=== PATIENT | female | born 1955 | race Caucasian/White ===

== ENCOUNTER 2019-08-03 09:41 | Inpatient (IN) | payer OTHER ==
[2019-08-03] MEDS ORDERED: traMADol HCL 50 MG TABLET PO ONE (10:26)
--- NOTE | 2019-08-03 10:26 | PDOC ---
History of Present Illness - General Chief Complaint: Muscle Cramping Stated Complaint: PELVIC PAIN Time Seen by Provider: 08/03/19 09:58 - History of Present Illness Initial Comments: 08/03/19 10:26 Pt is a 53 y/o F with a PMH of Lumbar disc herniation who presents to our emergency Department due to pain in her left hip and lower back. Pt endorses that she has been experiencing left lower extremity pain and weakness since this past January. 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 PMH: osteoporosis, vertebral fracture (~2 years ago) PCP: Dr. Mendoza ([place]) Pain management: Dr. Zepeda ([place]) Past History - Past Medical History Allergies/Adverse Reactions: Allergies Allergy/AdvReac Type Severity Reaction Status Date / Time No Known Allergies Allergy Verified 08/03/19 09:49 Home Medications: Ambulatory Orders Levothyroxine [Synthroid -] 100 mcg PO DAILY 10/29/13 Ascorbic Acid [Vitamin C] 500 mg PO DAILY 08/03/19 COPD: No Thyroid Disease: Yes (hypothyroid) - Psycho Social/Smoking Cessation Hx Smoking History: Never smoked Have you smoked in the past 12 months: No Number of Cigarettes Smoked Daily: 0 Hx Alcohol Use: No Substance Use Type: None Review of Systems - Review of Systems Able to Perform ROS?: Yes Is the patient limited Icelandic proficient: No Constitutional: No: Chills, Fever Respiratory: No: Cough, Shortness of Breath Cardiac (ROS): No: Chest Pain ABD/GI: No: Abdominal Distended, Constipated, Diarrhea Musculoskeletal: Yes: Muscle Weakness Neurological: Yes: Paresthesia, Weakness, Unsteady Gait *Physical Exam - Vital Signs Last Vital Signs Temp Pulse Resp BP Pulse Ox 97.5 F L 58 L 18 123/76 99 08/03/19 09:49 08/03/19 09:49 08/03/19 09:49 08/03/19 09:49 08/03/19 09:49 - Physical Exam General Appearance: Yes: Nourished, Appropriately Dressed HEENT: positive: EOMI, Normal ENT Inspection Neck: positive: Supple Respiratory/Chest: positive: Lungs Clear, Normal Breath Sounds Cardiovascular: positive: Regular Rhythm, S1, S2 Gastrointestinal/Abdominal: negative: Distended, Guarding, Rebound 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 +3/5 dorsiflexion left big toe 2+ Patellofemoral reflexes b/ l. ) ED Treatment Course - LABORATORY CBC & Chemistry Diagram: 08/05/19 07:17 08/05/19 07:17 - RADIOLOGY Radiology Studies Ordered: Category Date Time Status HIP & PELVIS-LEFT [RAD] Stat Radiology 08/03/19 10:23 Ordered SPINE-LUMBAR SACRAL [RAD] Stat Radiology 08/03/19 10:25 Ordered Medical Decision Making - Medical Decision Making 08/03/19 12:04 CBC w/ Diff, CMP, PT/INR, Type and screen sent Plain xray left hip and L spine--> Fracture Pt given Ultram for pain MRI of lumbar spine 03/29/19 - mild central loss of height of T11 appears chronic - small annular bulge at L2-L3 causes mild narrowing of the foramen - annular bulge at the L3-L4 causes slight posterior displcement of the left L3 ventral nerve root an mild narrowing of the foramen - annular bulge at the L4-L5 level has mild mass effect on the right ventral nerve root. Moderate left foraminal stenosis - annular bulge at the L5-S1 abuts the ventral nerve roots without mass effect. There is mild narrowing of the left foramen with contact on the exiting nerve root. - simple cyst in the right ovary up to 5.4cm it is similar to 2017 MRI of the left hip 02/22/19 - mild bone marrow edema within the L5 vertebral body - mild arthritic changes of the left hip joint. Hip effusion - a small amount of marrow edema is seen in the femoral neck without evidence for fracture - grade 1 strain of the gluteus medius muscle - large cyst in the right adnexal region has decreased in volume when compared to 2017 08/03/19 12:44 XRAY Hip and Pelvis: Single AP of the pelvis. 2 views of the left hip. Demineralized osseous structures. Symmetrical articulation of the hip joints. Symmetrical SI joints. Normal symphysis pubis. Bilateral hip degenerative changes. Minimal foreshortening of the left femoral neck with sclerotic changes in the superior aspect of the neck, subcapital region concerning for impacted fracture. Evaluated by Meena Ku and Ta Garcia. Pt admitted for further workup including ct/ mri. Discharge - Discharge Information Problems reviewed: Yes Clinical Impression/Diagnosis: Left groin pain - Follow up/Referral - Patient Discharge Instructions - Post Discharge Activity
[2019-08-03] MEDS ORDERED: traMADol HCL 50 MG TABLET ONE (10:28)
[2019-08-03] MEDS ORDERED: DEXAMETHASONE SOD PHOSPHATE 10 MG/1 ML VIAL IVPUSH ONE (10:39)
[2019-08-03] MEDS ORDERED: DEXAMETHASONE SOD PHOSPHATE 10 MG/1 ML VIAL ONE (11:04)
--- NOTE | 2019-08-03 11:06 | PN ---
Progress Note (short form) - Note Progress Note: NEUROSURGERY CONSULT DICTATED Pt examined History obtained at bedside 6 months h/o LBP, left hi/groin and buttock pain. L foot numbness and weakness. No B/B dysfunction. Not able to bend or walk or stand well. EPSI x3 helped back pain but not groin/hip/buttock pain Told she has "4 herniated discs" by her pain management doc Dr Zepeda PE: General- unremarkable CN- intact; Motor- 5/5 except L IP/Ev 4-, L Quad/EHL/TA/gastroc 4/5; Sensation- decreased LT/vibration L L4 and L5; DTR- decreased B ankle reflexes; + SLR on L at 40 degrees, + L Alon's maneuver LS x-rays (prelim)- L5-S1 DDD/spondylosis; grade I L4-5 spondylolisthesis Obtain prior MRI report Given worsening/persistent pain, would recommend new MRI LS spine to r/o L L4, L5, and S1 root compression Further recommendations depending on imaging findings
--- NOTE | 2019-08-03 11:11 | PDOC ---
Documentation entered by Aviva Mccullough SCRIBE, acting as scribe for Radha Lanier DO. Radha Lanier DO: This documentation has been prepared by the Jamel urbano Sammi, SCRIBE, under my direction and personally reviewed by me in its entirety. I confirm that the documentation accurately reflects all work, treatment, procedures, and medical decision making performed by me. Attending Attestation - Resident Resident Name: Sammy Suarez - ED Attending Attestation I have performed the following: I have examined & evaluated the patient, The case was reviewed & discussed with the resident, I agree w/resident's findings & plan, Exceptions are as noted - HPI HPI: 08/03/19 11:00 The patient is a 64 year old female who presents to the emergency department for evaluation of left groin pain since January. She states around the time of onset of pain she was participating in workout classes. She notes she has had xrays of the left hip and an MRI of the lumbar spine which demonstrated bulging discs and pinched nerves. The patient reports her left hip pain affects her activities of daily living. PMH: osteoporosis, vertebral fracture (~2 years ago) PCP: Dr. Mendoza ([facility]) Pain management: Dr. Lagos ([facility]) - Physicial Exam PE: 08/03/19 11:01 GENERAL: Awake, alert, and fully oriented, in no acute distress NECK: Normal ROM, supple, no lymphadenopathy, JVD, or masses LUNGS: Breath sounds equal, clear to auscultation bilaterally. No wheezes, and no crackles HEART: Regular rate and rhythm, normal S1 and S2, no murmurs, rubs or gallops ABDOMEN: Soft, nontender, normoactive bowel sounds. No guarding, no rebound. No masses BACK: +midline L spine tenderness (L2-down). +Left low back paraspinal tenderness EXTREMITIES: +Left hip ttp +pain with external rotation and flexion of the left hip (less with internal rotation) +3/5 dorsiflexion left big toe +4/5 dorsiflexion of foot +4/5 flexion of hip with pain. 5/5 left foot plantarflexion. NEUROLOGICAL: Cranial nerves II through XII grossly intact. Normal speech. SKIN: Warm, Dry, normal turgor, no rashes or lesions noted. - Medical Decision Making 08/03/19 11:05 I, Dr. Radha Lanier, DO, attest that this document has been prepared under my direction and personally reviewed by me in its entirety. I further attest, that it accurately reflects all work, treatment, procedures and medical decision -making performed by me. a/p: 64yo female with hx of osteoporosis with lbp and L hip/groin pain -pt states pain started 6m ago after lifting in a work out class -doesn't remember acute onset of pain, but started to feel pain after the class -pt states increasing weakness to LLE and L groin pain since -had MRI that showed 4 herniated discs in lumbar spine - pt states 3 epidural injections since january without relief -L lbp, midline lbp -weakness in dorsiflexion of the foot and toe -pt with sensation intact -pt also with pain with internal an external rotation of the L hip -pain with flexion of the hip -will send for xray low back and hip/pelvis -family requests Dr. Alcantara for neurosx for neuro deficits -case discussed with Dr. Alcantara - recommends MRI lumbar spine -will give ultram -will send labs -will monitor and reassess 08/03/19 11:11 dr. alcantara at the bedside to see the patient 08/03/19 11:48 MRI of lumbar spine 03/29/19 - mild central loss of height of T11 appears chronic - small annular bulge at L2-L3 causes mild narrowing of the foramen - annular bulge at the L3-L4 causes slight posterior displcement of the left L3 ventral nerve root an mild narrowing of the foramen - annular bulge at the L4-L5 level has mild mass effect on the right ventral nerve root. Moderate left foraminal stenosis - annular bulge at the L5-S1 abuts the ventral nerve roots without mass effect. There is mild narrowing of the left foramen with contact on the exiting nerve root. - simple cyst in the right ovary up to 5.4cm it is similar to 2017 MRI of the left hip 02/22/19 - mild bone marrow edema within the L5 vertebral body - mild arthritic changes of the left hip joint. Hip effusion - a small amount of marrow edema is seen in the femoral neck without evidence for fracture - grade 1 strain of the gluteus medius muscle - large cyst in the right adnexal region has decreased in volume when compared to 2017 08/03/19 12:11 impacted fem neck fx on xray compression fx in lumbar spine ct/mri ordered case discussed with Dr. Ku who will see the patient in consult (Dr. Ku per fam request) 08/03/19 12:11 Dr. Ku at the bedside 08/03/19 12:[address] Nicolas for admission 08/03/19 12:[address] Layne - accepts pt to service Heart Score/ECG Review - ECG Intrepretation Comment:: 08/03/19 12:22 sinus at 68, nl axis, nl interval, no acute st/t wave findings
[2019-08-03 11:25] LABS: BASO % 0.8 % (0-2.0); EOS % 2.5 % (0-4.5); HEMATOCRIT 39.8 % (32.4-45.2); HEMOGLOBIN 13.2 GM/dL (10.7-15.3); LYMPH % 24.6 % (8-40); MCH 31.4 pg (25.7-33.7); MCHC 33.2 g/dl (32.0-36.0); MEAN CELL VOLUME 94.6 fl (80-96); MEAN PLT VOLUME 8.3 fl (7.5-11.1); MONO % 6.7 % (3.8-10.2); NEUT % 65.4 % (42.8-82.8); PLATELET COUNT 187 K/MM3 (134-434); RBC 4.21 M/mm3 (3.60-5.2); RDW 13.1 % (11.6-15.6); WHITE BLOOD COUNT 5.5 K/mm3 (4.0-10.0)
[2019-08-03 11:32] LABS: BILIRUBIN,TOTAL 0.4 mg/dL (0.2-1); BLOOD UREA NITROGEN 21.7 mg/dL (7-18); CALCIUM 9.2 mg/dL (8.5-10.1); CREATININE 0.7 mg/dL (0.55-1.3); INR 0.96 (0.83-1.09); POTASSIUM 4.1 mmol/L (3.5-5.1); PROTHROMBIN TIME (PATIENT) 11.3 SEC (9.7-13.0); TOT PROT 7.4 g/dl (6.4-8.2)
--- NOTE | 2019-08-03 12:16 | CONS ---
DATE OF CONSULTATION: 08/03/2019 CHIEF COMPLAINT: Left groin, back, and buttock pain with left lower extremity weakness and numbness of 6 months duration. HISTORY OF PRESENT ILLNESS: Patient is a 64-year-old right-handed female with a history of lower back pain 6 months ago after an exercise program who subsequently complains of increasing left-sided groin and buttock pain. There is also associated weakness and numbness of the left lower extremity. She has done some exercises , but the pain persists. She has no right-sided symptoms. She has no bowel or bladder incontinence. Her pain is worse with standing and walking and any activities including bending. She was given Motrin, but that does not help her pain much. She also underwent 3 epidural steroid injections under the care of her pain management physician, which helps her back pain but not her groin or buttock pain. She denies any other recent trauma or falls. PAST MEDICAL HISTORY: Significant for hypothyroidism and osteoporosis. MEDICATIONS: Lipitor and Motrin. ALLERGIES: There are no known drug allergies. FAMILY HISTORY: Noncontributory. SOCIAL HISTORY: She does not smoke and only drinks alcohol socially. She lives at home with her . REVIEW OF SYSTEMS: Otherwise negative for major constitutional, head, neck, cardiovascular, pulmonary, gastrointestinal, genitourinary, endocrinological, neurological, or psychological problems except for the above. PHYSICAL EXAMINATION: Vital Signs: Temperature is 97.5, blood pressure is 123/76 with a pulse rate of 58. HEENT: Shows her to be normocephalic, atraumatic, anicteric. Neck: Supple with no nuchal rigidity. Coronary: Demonstrates regular rhythm without a murmur. Lungs: Clear to auscultation bilaterally. Abdomen: Benign. Extremities: There are no signs of DVT. Neurologic: She is awake, alert, and oriented x4. Her speech is normal. Cranial nerve examination is intact 2-12. Motor examination shows 5/5 strength except left iliopsoas and foot eversion, which are 4-. Left quadriceps, extensor hallucis longus, tibialis anterior, and gastrocnemius are 4/5. There is decreased sensation to light touch and vibratory sensation of the left L4 and L5 distribution. Deep tendon reflexes are 2 to 3+ bilaterally except diminished bilateral ankle reflexes. She has a positive straight leg raise on the left side of 40 degrees. She has a positive left-sided Alon's maneuver. IMPRESSION: 1. Left-sided back pain and left lower extremity weakness with numbness consistent with clinical left L4, L5, and S1 radiculopathy. 2. Osteoporosis by report. 3. Hypothyroidism. RECOMMENDATIONS: Patient presents with a [id number] of increasing left- sided back pain and pain radiating down to her left buttock and left groin. This is consistent with left S1 radiculopathy in addition to potential hip pathology. She also has weakness of the left with dorsiflexion especially foot eversion, which is predominantly L4. There is extensor hallucis longus and gastrocnemius weakness, which are L5 and S1 respectively. There is corresponding numbness in the L4 and L5 distribution. An MRI of the lumbar spine is recommended to visualize from T12 to S1 to rule out any compressive pathology on the left side. Occasionally, thoracolumbar junction pathology can cause distal left lower extremity symptoms. The patient could potentially benefit from a course of gabapentin for her radiculopathy. She may also, as I stated earlier, have concurrent hip pathology, and radiograph evaluation is underway to assess her hips as well. An MRI report from previous imaging will be helping; however, repeat MRI imaging at this time is warranted because of her persistent symptoms with associated neurological deficit. The above was discussed with patient and the at the bedside. All questions were answered. AURORA DIAMOND M.D. [id number] MTDD
--- NOTE | 2019-08-03 12:21 | CONSULT ---
Consult - text type - Consultation Consultation Note: ORTHOPEDIC SURGERY CONSULTATION NOTE Department of Orthopedic Surgery HISTORY OF PRESENT ILLNESS Ms Gu is a 64 year old female who presents to [facility] ER with several months of worsening left groin pain. She has been worked up for lumbar spine pathology in the past, and had an MRI of the left hip several months ago which showed mild edema in the left femoral neck. The orthopedic service was consulted for a possible left hip impacted femoral neck fracture. The pain began insidiously after a exercises workout approximately 6 months ago. The patient notes pain in her left groin, Denies any other injuries. Denies numbness, tingling or other constitutional complaints. Denies tobacco use, drug use, alcohol abuse. The patient lives with family and uses no assistive devices at baseline. FAMILY HISTORY non-contributory REVIEW OF SYMPTOMS A twelve-point review of systems was performed and was negative except as noted in HPI. PHYSICAL EXAM Constitutional: Alert and oriented to person, place, and time. Appears well- developed and well-nourished. No acute distress, appropriate mood and affect. Right Upper Extremity: Skin warm, dry, and intact; no lesions, rashes or ulcers noted. Muscle mass equal and symmetric to contralateral side. No atrophy noted. No masses or effusions noted. No tenderness to palpation all joints; nontender throughout rest of extremity. Full passive and active ROM, free from pain. Joints stable with no pathologic laxity. M/R/U/MSK/AX motor intact; SILT distally; 2+ radial pulses; Cap refill brisk. Tone and reflexes normal. Left Upper Extremity: Skin warm, dry, and intact; no lesions, rashes or ulcers noted. Muscle mass equal and symmetric to contralateral side. No atrophy noted. No masses or effusions noted. No tenderness to palpation all joints; nontender throughout rest of extremity. Full passive and active ROM, free from pain. Joints stable with no pathologic laxity. M/R/U/MSK/AX motor intact; SILT distally; 2+ radial pulses; Cap refill brisk. Tone and reflexes normal. Right Lower Extremity: Skin warm, dry, and intact; no lesions, rashes or ulcers noted. Muscle mass equal and symmetric to contralateral side. No atrophy noted. No masses or effusions noted. No tenderness to palpation all joints; nontender throughout rest of extremity. No cords or calf tenderness No significant calf/ankle edema. Full passive and active ROM, free from pain. Joints stable with no pathologic laxity. EHL/TA/GS motor intact; SILT distally; 2+ DP pulses; Cap refill brisk. Tone and reflexes normal. Able to SLR; Negative log roll test. Left Lower Extremity: Skin warm, dry, and intact; no lesions, rashes or ulcers noted. Muscle mass equal and symmetric to contralateral side. No atrophy noted. No masses or effusions noted. Tender to palpation at left greater trochanter/ groin area. nontender throughout rest of extremity. No cords or calf tenderness No significant calf/ankle edema. Full passive ROM of the knee and ankle, free from pain. Joints stable with no pathologic laxity. EHL motor 4/5; TA motor 4/5 ; GC motor 5/5. SILT distally; 2+ DP pulses; Cap refill brisk. Tone and reflexes normal. Able to SLR with difficulty and pain in groin; Negative log roll, unable to ER hip. Social History Smoking history Never smoked Aproximately how many 0 cigarettes per day Hx Alcohol Use No Allergies Allergy/AdvReac Type Severity Reaction Status Date / Time No Known Allergies Allergy Verified 08/03/19 09:49 Vital Signs (last) Temp Pulse Resp BP Pulse Ox 97.5 F L 58 L 18 123/76 99 08/03/19 09:49 08/03/19 09:49 08/03/19 09:49 08/03/19 09:49 08/03/19 09:49 Intake and Output 08/01/19 08/02/19 08/03/19 23:59 23:59 23:59 Other: Weight 145 lb Height 4 ft 11 in Body Mass Index (BMI) 29.2 Weight Measurement Method Est/Stated by Patient Laboratory 08/03/19 11:00 08/03/19 11:00 PT with INR 11.30 SEC (9.7-13.0) 08/03/19 11:00 IMAGING I personally reviewed all radiographs, CT, and other imaging. They demonstrate a possible Left Femoral Neck fracture ASSESSMENT AND PLAN Ms. Gu is a 64 year old female presenting with a possible left sided non- displaced femoral neck fracture. We have reviewed the imaging and clinical findings in detail, as well as their potential implications. We will obtain a CT scan to confirm the left femoral neck fracture. If confirmed, this is an operative fracture. Admit - Follow up CT left hip - If CT negative for fracture, need to obtain MRI of the left hip. NPO past midnight except for medications - DVT PPX today, hold antiocoagulation medications past midnight NWB LLE CBC/BMP/Coags Type and Screen/2 units PRBC on hold IVF as per medical team when NPO EKG CXR UA All questions were answered. Thank you for involving our team in the care of this patient. Please call us at [phone] with questions
[2019-08-03] MEDS ORDERED: ONDANSETRON *ODT* 4 MG TABLET ONE (13:46)
--- NOTE | 2019-08-03 14:08 | HP ---
Admitting History and Physical - Admission Chief Complaint: came in for left groin pain History of Present Illness: The patient is a 64 year old female who presents to the emergency department for evaluation of left groin pain since January. She states around the time of onset of pain she was participating in workout classes 6 months ago. She notes she has had xrays of the left hip and an MRI of the lumbar spine which demonstrated bulging discs and pinched nerves. The patient reports her left hip pain affects her activities of daily living. she is not able to dress herself and cannot abduct the thigh bc of the pain she has seen pain specialist had MRI for back pain and got 3 facet injections in the back,but it didnot relieve the pain History Source: Patient - Past Medical History Rheumatology: Yes: Other (osteoporosis) Endocrine: Yes: Hypothyroidism - Smoking History Smoking history: Never smoked Have you smoked in the past 12 months: No Aproximately how many cigarettes per day: 0 - Alcohol/Substance Use Hx Alcohol Use: No Home Medications - Allergies Allergies/Adverse Reactions: Allergies Allergy/AdvReac Type Severity Reaction Status Date / Time No Known Allergies Allergy Verified 08/03/19 09:49 - Home Medications Home Medications: Ambulatory Orders Levothyroxine [Synthroid -] 100 mcg PO DAILY 10/29/13 Ascorbic Acid [Vitamin C] 500 mg PO DAILY 08/03/19 Review of Systems - Review of Systems Musculoskeletal: reports: Other (left groin pain) Physical Examination Vital Signs: Vital Signs Temperature 97.5 F L 08/03/19 09:49 Pulse Rate 58 L 08/03/19 09:49 Respiratory Rate 18 08/03/19 09:49 Blood Pressure 123/76 08/03/19 09:49 O2 Sat by Pulse Oximetry (%) 99 08/03/19 09:49 Constitutional: Yes: Calm Cardiovascular: Yes: Regular Rate and Rhythm, S1 Respiratory: Yes: CTA Bilaterally Gastrointestinal: Yes: Normal Bowel Sounds, Soft Extremities: Yes: Other Edema: No Neurological: Yes: Alert, Oriented, Other (decerase range of dorsiflexion on left side and cannot abduct the left thigh secondary to pain 'limited flexion oif knee seocndary to pain) Labs: CBC, BMP 08/03/19 11:00 08/03/19 11:00 Imaging - Results X-ray: Report Reviewed (minimal foreshortening of the left femoral neck) Cat Scan: Report Reviewed (did not show facrute) Problem List - Problems (1) Left groin pain Assessment/Plan: mri of the pelvis ordered seen by [facility] and ortho pain control NPO midnight dvt ppx Code(s): R10.32 - LEFT LOWER QUADRANT PAIN (2) Hypothyroid Assessment/Plan: synthroid tsh Code(s): E03.9 - HYPOTHYROIDISM, UNSPECIFIED
[2019-08-03] MEDS ORDERED: MORPHINE SULFATE 2 MG/ML VIAL IVPUSH PRN (14:43)
[2019-08-03 18:15] VITALS: BMI 28.8
[2019-08-03] MEDS: traMADol HCL 50 MG TABLET PO PRN (19:19)
[2019-08-03] MEDS: DEXTROSE 5%-0.45% SALINE 1,000 ML IV SCH (23:00)
[2019-08-04] MEDS: LEVOTHYROXINE NA 100 MCG TABLET (FP) PO SCH (06:02)
[2019-08-04] MEDS: traMADol HCL 50 MG TABLET PO PRN ×3 (06:05→21:00)
[2019-08-04 08:14] LABS: HEMATOCRIT 35.6 % (32.4-45.2); MCH 31.9 pg (25.7-33.7); MCHC 33.7 g/dl (32.0-36.0); MEAN CELL VOLUME 94.8 fl (80-96); MEAN PLT VOLUME 8.2 fl (7.5-11.1); PLATELET COUNT 196 K/MM3 (134-434); RBC 3.75 M/mm3 (3.60-5.2); RDW 12.9 % (11.6-15.6); WHITE BLOOD COUNT 10.3 K/mm3 (4.0-10.0)
--- NOTE | 2019-08-04 08:18 | PN ---
Progress Note (short form) - Note Progress Note: NEUROSURGERY 6 months h/o LBP, left hi/groin and buttock pain. L foot numbness and weakness. No B/B dysfunction. Not able to bend or walk or stand well. EPSI x3 helped back pain but not groin/hip/buttock pain; pain pattern the same PE: General- unremarkable; 2+ distal pulses CN- intact; Motor- 5/5 except L IP/Ev 4-, L Quad/EHL/TA/gastroc 4/5; Sensation- decreased LT/vibration L L4 and L5; DTR- decreased B ankle reflexes; + SLR on L at 40 degrees, + L Alon's maneuver LS x-rays - L5-S1 DDD/spondylosis; grade I L4-5 spondylolisthesis LS spine MRI- L5-S1 DDD with facet hypertrophy; L4-5 disc bulge with facet hypertrophy Likely mobile L4-5 spondylolisthesis, for flexion/extension x-rays EMG L LE to r/o radiculopathy vs neuropathy Cont Neurontin
[2019-08-04 08:27] LABS: INR 1.02 (0.83-1.09)
[2019-08-04 08:30] LABS: ACTIVATED PTT 27.5 SECONDS (25.2-36.5)
[2019-08-04 08:51] LABS: ALBUMIN 3.6 g/dl (3.4-5.0); BILIRUBIN,TOTAL 0.3 mg/dL (0.2-1); BLOOD UREA NITROGEN 25.9 mg/dL (7-18); CALCIUM 8.9 mg/dL (8.5-10.1); CREATININE 0.7 mg/dL (0.55-1.3); MAGNESIUM 2.4 mg/dL (1.8-2.4); PHOSPHOROUS 3.6 mg/dL (2.5-4.9); POTASSIUM 4.2 mmol/L (3.5-5.1); TOT PROT 6.9 g/dl (6.4-8.2)
--- NOTE | 2019-08-04 11:06 | EKG ---
Test Reason : Blood Pressure : / mmHG Vent. Rate : 068 BPM Atrial Rate : 068 BPM P-R Int : 166 ms QRS Dur : 090 ms QT Int : 386 ms P-R-T Axes : 034 -06 036 degrees QTc Int : 410 ms NORMAL SINUS RHYTHM NORMAL ECG NO PREVIOUS ECGS AVAILABLE Confirmed by Karel Molina MD ([id number]) on 08/04/2019 11:05:37 AM Referred By: Confirmed By:Karel Molina MD
--- NOTE | 2019-08-04 12:29 | PN ---
Progress Note, Physician Chief Complaint: Left Groin Pain History of Present Illness: Previous notes and events reviewed awake and alert NAD complain of pain to left groin denies chest pain or SOB pending EMG no surgical intervention as per Neurosurgery - Current Medication List Current Medications: Active Medications Enoxaparin Sodium (Lovenox -) 40 mg SQ ONCE ONE Stop: 08/04/19 14:43 Dextrose/Sodium Chloride (D5-1/2ns -) 1,000 mls @ 75 mls/hr IV ASDIR [facility] Last Admin: 08/03/19 23:00 Dose: 75 mls/hr Levothyroxine Sodium (Synthroid -) 100 mcg PO DAILY@0700 [facility] Last Admin: 08/04/19 06:02 Dose: 100 mcg Morphine Sulfate (Morphine Sulfate) 2 mg IVPUSH Q4H PRN PRN Reason: PAIN LEVEL 7 - 10 Tramadol HCl (Ultram -) 50 mg PO Q8H PRN PRN Reason: PAIN LEVEL 4 - 6 Last Admin: 08/04/19 06:05 Dose: 50 mg - Objective Vital Signs: Vital Signs Temperature 98.2 F 08/04/19 09:20 Pulse Rate 66 08/04/19 09:20 Respiratory Rate 20 08/04/19 09:20 Blood Pressure 113/73 08/04/19 09:20 O2 Sat by Pulse Oximetry (%) 98 08/04/19 09:00 Constitutional: Yes: No Distress, Calm Eyes: Yes: Conjunctiva Clear HENT: Yes: Atraumatic Cardiovascular: Yes: Regular Rate and Rhythm Respiratory: Yes: Regular, CTA Bilaterally Gastrointestinal: Yes: Normal Bowel Sounds, Soft Musculoskeletal: Yes: WNL Extremities: Yes: WNL Edema: No Neurological: Yes: Alert, Oriented Psychiatric: Yes: Alert, Oriented Labs: CBC, BMP 08/04/19 07:30 08/04/19 07:30 INR, PTT INR 1.02 (0.83-1.09) 08/04/19 07:30 Problem List - Problems (1) Hypothyroid Assessment/Plan: -Levothyroxine Code(s): E03.9 - HYPOTHYROIDISM, UNSPECIFIED (2) Left groin pain Assessment/Plan: -Neurosurgery on board -Ortho on board -PT -pain control -Lumbar Spine Xray shows demineralized osseous structures, loss of vertical height of T11 vertebral body with compression deformity of superior endplates of indeterminate age, facet joint athropathy, grade 1 anterior spondylolisthesis L4 on L5, chronic degenerative discogenic disease at L5-S1 with significant disc space narrowing -Hip/Pelvic Xray demineralized osseous structures, symmetrical articulation of hip joints, symmetrical SI joints, normal symphysis pubis, bilateral hip degenrative changes, minimal foreshortening of the left femoral neck with sclerotic changes in the superior aspect of the neck , subcapital region concerning for impacted fracture -Lumbar Spine MRI shows no acute compression deformities seen, chronic Schmori' s node endplate T11, L4-L5 moderate facet joint arthopathy with thickened ligamentum flavum, widened facet joints with bilateral facet joint effusions, disc desiccation, T2 STIR hyperintensity noted in the central aspect of the desiccated disc which may attributed to vaccuum phenomena, there is minimal degenerative anterior spondyloisthesis of L4 on L5, central canal stenosis, no compression of L4 nerve, L5-S1 loss of disc space height, disc desiccation, degenerative endplate bone marrow changes Modic type II, posterior annular bulge without central central spinal canal stenosis , no compression L5 nerve -Pelvic CT scan shows no hip fracture -pending official read lower extremity MRI -EMG pending Code(s): R10.32 - LEFT LOWER QUADRANT PAIN Assessment/Plan see problem list dvt ppx
--- NOTE | 2019-08-04 13:32 | CONSULT ---
Consult Consult Specialty:: PM&R Dr Dover for Dr Malik Reason for Consultation:: EMG LLE, neuropathy versus radiculopathy - History of Present Illness History of Present Illness: This is a 64 year old woman with a medical history of osteoporosis, hypothyroidism, who presented to the ED 08/03/19 with L groin pain since 2018 which began after an exercise class. She reports the pain is sharp, from the L low back into the buttock, but also from the L groin into the buttock and back; rarely it radiates down posterior L leg but not below the knee. She denies any BLE numbness or paresthesias, or bowel/ bladder incontinence. DAMION x3 in past did not help. L hip XR showed minimal shortening of the L femoral neck; MRI lumbat spine 08/03/19 shows diffuse disc dessication with L2-3 mild facet arthropathy, L3-4 facet arthropathy with mild posterior annular bulge, L4-5 mod facet arthropathy with ligamentum flavum thickening, and L5-S1 disc dessication and DDD with annular bulge and L>R facet arthropathy, without nerve impingement. CT pelvis 08/03/19 shows possible L femoral neck impacted fx; MRI L hip is pending. Ortho was consulted for L hip pathology, who is considering L hip surgical repair if MRI shows fracture, and Neurosurgery was consulted for spine pathology, who requested EMG LLE to evaluate for radiculopathy versus neuropathy. - Past Medical History Rheumatology: Yes: Other (osteoporosis) Endocrine: Yes: Hypothyroidism - Alcohol/Substance Use Hx Alcohol Use: No - Smoking History Smoking history: Never smoked Have you smoked in the past 12 months: No Aproximately how many cigarettes per day: 0 - Social History Usual Living Arrangement: Alone (alone in walk-up apartment with 36 steps to enter) ADL: Independent (without AD) Home Medications - Allergies Allergies/Adverse Reactions: Allergies Allergy/AdvReac Type Severity Reaction Status Date / Time No Known Allergies Allergy Verified 08/03/19 09:49 - Home Medications Home Medications: Ambulatory Orders Levothyroxine [Synthroid -] 100 mcg PO DAILY 10/29/13 Ascorbic Acid [Vitamin C] 500 mg PO DAILY 08/03/19 Review of Systems Findings/Remarks: Denies fevers, chills, changes in vision/ hearing/ mood, CP, SOB, abdominal pain , nausea, vomiting, constipation, diarrhea, bowel/ bladder incontinence, dysuria , or BLE numbness/ paresthesias. She notes L LBP and L groin pain as per HPI. - Review of Systems Musculoskeletal: reports: Other Physical Exam Vital Signs: Vital Signs Temperature 98.2 F 08/04/19 09:20 Pulse Rate 66 08/04/19 09:20 Respiratory Rate 20 08/04/19 09:20 Blood Pressure 113/73 08/04/19 09:20 O2 Sat by Pulse Oximetry (%) 98 08/04/19 09:00 Musculoskeletal: Yes: Other (General: calm elderly F sitting in bed NAD N/M: 5/5 RLE, 4+/5 LLE except for 4/5 L EHL; Pinprick Intact BLE; +L groin pain with L hip flexion/ internal rotation/ external rotation; no BLE pitting edema or B calf tenderness) Labs: CBC, BMP 08/04/19 07:30 08/04/19 07:30 Imaging - Results X-ray: Report Reviewed (as per HPI) Cat Scan: Report Reviewed (as per HPI) MRI: Report Reviewed (as per HPI) Assessment/Plan Electrodiagnostics were performed, please see scanned images for details ( please note, images often scanned under admission date): there is electrophysiological evidence of a L L5 radiculopathy without evidence of a peripheral neuropathy. Impression: 1) Deficits mobility/ ADLs 2) Deconditioning 3) Gait abnormality 4) L L5 radiculopathy 5) Lumbar DDD/ DJD 6) L hip pain possibly impacted fx, pending MRI L hip results 7) hx osteoporosis 8) hx hypothyroidism 9) Overweight 10) No documented flu shot, up to date pneumovax Recommendations: 1) Start PT once cleared by Ortho 2) Falls, safety precautions 3) Heat/ ice/ US/ TENS lumbar spine prn; modalities to hip as per Ortho 4) Denies constipation on current bowel regimen 5) DVT ppx: on hep sc 6) Nutrition consult for obesity 7) Continue work-up per Ortho; her main pain appears related to intrinsic hip pathology as opposed to radiculopathy 8) F/u Neurosurgery recs 9) Continue plan per primary team 10) Discharge planning: to be determine once WB status established Thank you for this referral.
--- NOTE | 2019-08-04 13:36 | PN ---
Progress Note (short form) - Note Progress Note: ORTHOPEDIC SURGERY PROGRESS NOTE Department of Orthopedic Surgery SUBJECTIVE No acute events overnight. No complaints currently. Denies chest pain, shortness of breath, or calf pain. No nausea or vomiting. Tolerating oral intake. Pain controlled currently. PHYSICAL EXAMINATION General: Alert, oriented, cooperative and no distress. Left Lower Extremity: Skin warm, dry, and intact; no lesions, rashes or ulcers noted. Muscle mass equal and symmetric to contralateral side. No atrophy noted. No masses or effusions noted. Tender to palpation at left greater trochanter/ groin area. nontender throughout rest of extremity. No cords or calf tenderness No significant calf/ankle edema. Full passive ROM of the knee and ankle, free from pain. Joints stable with no pathologic laxity. EHL motor 4/5; TA motor 4/5 ; GC motor 5/5. SILT distally; 2+ DP pulses; Cap refill brisk. Tone and reflexes normal. Able to SLR with difficulty and pain in groin; Negative log roll, unable to ER hip. DVT Exam: No evidence of DVT seen on physical exam; No cords or calf tenderness ; No significant calf/ankle edema. Intake & Output 08/02/19 08/03/19 08/04/19 23:59 23:59 23:59 Intake Total 925 675 Balance 925 675 Intake: IV 75 675 D5-1/2Ns - 1,000 ml @ 75 75 675 mls/hr IV ASDIR [facility] Rx#: [id number] Oral 850 Other: Voiding Method Toilet Toilet # Unmeasured Voids Void 1 2 Weight 143 lb Height 4 ft 11 in Body Mass Index (BMI) 28.8 Weight Measurement Method Built in Bedscale Standing Scale Weight Measurement Method Est/Stated by Patient Active Medications Generic Name Dose Route Start Last Admin Trade Name Freq PRN Reason Stop Dose Admin Enoxaparin Sodium 40 mg 08/04/19 14:42 Lovenox - SQ 08/04/19 14:43 ONCE ONE Heparin Sodium (Porcine) 5,000 unit 08/04/19 22:00 Heparin - SQ BID GEORGE Dextrose/Sodium Chloride 1,000 mls @ 75 mls/hr 08/03/19 23:55 08/03/19 23:00 D5-1/2ns - IV 75 mls/hr ASDIR [facility] Administration Levothyroxine Sodium 100 mcg 08/04/19 07:00 08/04/19 06:02 Synthroid - PO 100 mcg DAILY@0700 [facility] Administration Morphine Sulfate 2 mg 08/03/19 14:43 Morphine Sulfate IVPUSH Q4H PRN PAIN LEVEL 7 - 10 Tramadol HCl 50 mg 08/03/19 14:42 08/04/19 06:05 Ultram - PO 50 mg Q8H PRN Administration PAIN LEVEL 4 - 6 Vital Signs (last) Temp Pulse Resp BP Pulse Ox 98.2 F 66 20 113/73 98 08/04/19 09:20 08/04/19 09:20 08/04/19 09:20 08/04/19 09:20 08/04/19 09:00 Laboratory (coagulation) PT with INR 12.00 SEC (9.7-13.0) 08/04/19 07:30 Laboratory 08/04/19 07:30 08/04/19 07:[address] Negative for fracture; Of note, there is moderate to severe left hip osteoarthritis characterized by joint space narrowing and osteophyte formation. X-rays Negative for fracture. Left hip OA MRI left hip: report pending - no fracture seen. ASSESSMENT AND PLAN Ms. Gu is a 64 year old female presenting with a possible left sided non- displaced femoral neck fracture. We have reviewed the imaging and clinical findings in detail, as well as their potential implications. We have agreed on the following plan: Pain Control DVT ppx (SCDs while in bed) Can start diet from orthopedic standpoint. No plan for any surgical intervention. Neurosx consult appreciated FU Labs Continue medical management. No further orthopedic intervention at this time. All questions were answered. Thank you for involving our team in the care of this patient. Please have her follow up within the next 1-2 weeks. [phone]. Marco Ku DO
[2019-08-04] MEDS ORDERED: ENOXAPARIN NA (PORCINE) 40 MG/0.4 ML DISP.SYRIN SQ ONE (14:42)
[2019-08-04] MEDS: HEPARIN NA (PORCINE) 5,000 UNITS/ML 1ML VIAL SQ SCH (21:01)
[2019-08-05] MEDS: LEVOTHYROXINE NA 100 MCG TABLET (FP) PO SCH (06:10)
[2019-08-05] MEDS: traMADol HCL 50 MG TABLET PO PRN ×2 (06:11→18:48)
[2019-08-05] MEDS: DEXTROSE 5%-0.45% SALINE 1,000 ML IV SCH (06:12)
[2019-08-05 08:32] LABS: HEMATOCRIT 38.2 % (32.4-45.2); HEMOGLOBIN 12.5 GM/dL (10.7-15.3); MCH 31.6 pg (25.7-33.7); MCHC 32.8 g/dl (32.0-36.0); MEAN CELL VOLUME 96.5 fl (80-96); MEAN PLT VOLUME 8.8 fl (7.5-11.1); PLATELET COUNT 182 K/MM3 (134-434); RBC 3.96 M/mm3 (3.60-5.2); WHITE BLOOD COUNT 7.3 K/mm3 (4.0-10.0)
[2019-08-05 08:58] LABS: ALBUMIN 3.6 g/dl (3.4-5.0); BILIRUBIN,TOTAL 0.3 mg/dL (0.2-1); BLOOD UREA NITROGEN 19.8 mg/dL (7-18); CALCIUM 8.5 mg/dL (8.5-10.1); CREATININE 0.8 mg/dL (0.55-1.3); POTASSIUM 4.1 mmol/L (3.5-5.1); TOT PROT 6.6 g/dl (6.4-8.2)
--- NOTE | 2019-08-05 09:29 | PN ---
Progress Note (short form) - Note Progress Note: NEUROSURGERY 6 months h/o LBP, left hip/groin and buttock pain. L foot numbness and weakness. No B/B dysfunction. Not able to bend or walk or stand well. PE: General- unremarkable; 2+ distal pulses CN- intact; Motor- 5/5 except L IP/Ev/EHL 4-, L Quad/EHL/TA/gastroc 4/5; Sensation- decreased LT/vibration L L4 and L5; DTR- decreased B ankle reflexes; + SLR on L at 40 degrees, + L Alon's maneuver LS x-rays - L5-S1 DDD/spondylosis; grade I L4-5 spondylolisthesis LS spine MRI- L5-S1 DDD with facet hypertrophy; L4-5 disc bulge with facet hypertrophy LS spine F/E x-rays- mild L4-5 anterolisthesis, did not reduce on extension EMG - L L5 radiculopathy Symptoms are likely from both L5 radiculopathy (L leg pain and foot weakness) and L hip (groin pain) Cont Neurontin Options of decompression of L L5 root d/w pt, though she has not tried much PT and weakness is mild Trial of L L4-5 EPSI x1 more time PT/modalities/truncal stabilization D/w Dr Nicolas Risks of injection- bleeding, infection, spinal H/A; consent obtained NPO after 0600 08-06
[2019-08-05] MEDS: HEPARIN NA (PORCINE) 5,000 UNITS/ML 1ML VIAL SQ SCH ×2 (09:45→21:06)
--- NOTE | 2019-08-05 10:18 | PN ---
Progress Note, Physician Chief Complaint: DISCUSSED CASE WITH THE PATIENT AND DR SIMON DIAMOND PATIENT C/O LEFT HIP PAIN MILD WEAKNESS LEFT LEG - Current Medication List Current Medications: Active Medications Heparin Sodium (Porcine) (Heparin -) 5,000 unit SQ BID [facility] Last Admin: 08/05/19 09:45 Dose: 5,000 unit Dextrose/Sodium Chloride (D5-1/2ns -) 1,000 mls @ 75 mls/hr IV ASDIR [facility] Last Admin: 08/05/19 06:12 Dose: Not Given Levothyroxine Sodium (Synthroid -) 100 mcg PO DAILY@0700 [facility] Last Admin: 08/05/19 06:10 Dose: 100 mcg Tramadol HCl (Ultram -) 50 mg PO Q8H PRN PRN Reason: PAIN LEVEL 4 - 6 Last Admin: 08/05/19 06:11 Dose: 50 mg - Objective Vital Signs: Vital Signs Temperature 97.7 F 08/05/19 06:00 Pulse Rate 62 08/05/19 06:00 Respiratory Rate 20 08/05/19 08:42 Blood Pressure 123/63 08/05/19 06:00 O2 Sat by Pulse Oximetry (%) 99 08/05/19 08:42 Constitutional: Yes: Mild Distress Cardiovascular: Yes: Regular Rate and Rhythm Respiratory: Yes: WNL Gastrointestinal: Yes: WNL Genitourinary: Yes: WNL Musculoskeletal: Yes: Back Pain Extremities: Yes: WNL Edema: No Peripheral Pulses WNL: Yes Integumentary: Yes: WNL Wound/Incision: Yes: Clean/Dry Neurological: Yes: Weakness ...Motor Strength: LLE Psychiatric: Yes: WNL Labs: CBC, BMP 08/05/19 07:17 08/05/19 07:17 INR, PTT INR 1.02 (0.83-1.09) 08/04/19 07:30 Problem List - Problems (1) Lumbago with sciatica, left side Code(s): M54.42 - LUMBAGO WITH SCIATICA, LEFT SIDE (2) Hypothyroid Code(s): E03.9 - HYPOTHYROIDISM, UNSPECIFIED (3) Left groin pain Code(s): R10.32 - LEFT LOWER QUADRANT PAIN (4) Back pain Code(s): M54.9 - DORSALGIA, UNSPECIFIED Assessment/Plan DISCUSSED OPTIONS WITH THE PATIENT WILL HAVE EPIDURAL DONE WITH DR DIAMOND PT AND CORE EXERCISES OUTPATIENT DVT PROPHYLAXIS OOB TO CHAIR
[2019-08-06] MEDS: LEVOTHYROXINE NA 100 MCG TABLET (FP) PO SCH (06:38)
[2019-08-06] MEDS: traMADol HCL 50 MG TABLET PO PRN (07:02)
[2019-08-06] MEDS: DEXTROSE 5%-0.45% SALINE 1,000 ML IV SCH ×2 (09:24→10:43)
--- NOTE | 2019-08-06 10:37 | PN ---
Progress Note, Physician Chief Complaint: scheduled for lumbar epidural injection today 12pm awake alert denies cp/sob denies loss of control of urine or bm - Current Medication List Current Medications: Active Medications Heparin Sodium (Porcine) (Heparin -) 5,000 unit SQ BID [facility] Last Admin: 08/05/19 21:06 Dose: Not Given Dextrose/Sodium Chloride (D5-1/2ns -) 1,000 mls @ 75 mls/hr IV ASDIR [facility] Last Admin: 08/06/19 09:24 Dose: Not Given Dextrose/Sodium Chloride (D5-Ns -) 1,000 mls @ 100 mls/hr IV ASDIR [facility] Levothyroxine Sodium (Synthroid -) 100 mcg PO DAILY@0700 [facility] Last Admin: 08/06/19 06:38 Dose: 100 mcg Tramadol HCl (Ultram -) 50 mg PO Q8H PRN PRN Reason: PAIN LEVEL 4 - 6 Last Admin: 08/06/19 07:02 Dose: 50 mg - Objective Vital Signs: Vital Signs Temperature 98.1 F 08/06/19 06:00 Pulse Rate 64 08/06/19 06:00 Respiratory Rate 20 08/06/19 06:00 Blood Pressure 113/53 L 08/06/19 06:00 O2 Sat by Pulse Oximetry (%) 99 08/05/19 08:42 Constitutional: Yes: Mild Distress Cardiovascular: Yes: Regular Rate and Rhythm Respiratory: Yes: WNL Gastrointestinal: Yes: WNL Genitourinary: Yes: WNL Musculoskeletal: Yes: Back Pain, Muscle Weakness Extremities: Yes: Other ...Motor Strength: LLE Labs: CBC, BMP 08/05/19 07:17 08/05/19 07:17 INR, PTT INR 1.02 (0.83-1.09) 08/04/19 07:30 Problem List - Problems (1) Lumbago with sciatica, left side Code(s): M54.42 - LUMBAGO WITH SCIATICA, LEFT SIDE (2) Hypothyroid Code(s): E03.9 - HYPOTHYROIDISM, UNSPECIFIED (3) Left groin pain Code(s): R10.32 - LEFT LOWER QUADRANT PAIN (4) Back pain Code(s): M54.9 - DORSALGIA, UNSPECIFIED Assessment/Plan DISCUSSED OPTIONS WITH THE PATIENT WILL HAVE EPIDURAL DONE WITH DR DIAMOND TODAY PT AND CORE EXERCISES OUTPATIENT DVT PROPHYLAXIS OOB TO CHAIR D5NS 100CC/HR
[2019-08-06 10:44] VITALS: PULSE 62
[2019-08-06] MEDS ORDERED: DEXTROSE 5%-NORMAL SALINE 1,000 ML IV SCH (10:45)
[2019-08-06] MEDS: HEPARIN NA (PORCINE) 5,000 UNITS/ML 1ML VIAL SQ SCH (10:47)
[2019-08-06] MEDS ORDERED: BUPIVACAINE HCL/PF 0.25% (2.5MG/ML) 10 ML VIAL ONE (11:34)
[2019-08-06] MEDS ORDERED: methylPREDNISolone ACET (DEPO) 80 MG/1 ML VIAL ONE (11:34)
[2019-08-06] MEDS ORDERED: BUPIVACAINE HCL/PF 2.5 MG/ML - 30 ML VIAL IJ ONE (12:16)
[2019-08-06] MEDS ORDERED: LIDOCAINE HCL 1% PRESERVATIVE FREE - 30ML VIAL IJ ONE (12:16)
[2019-08-06] MEDS ORDERED: methylPREDNISolone ACET (DEPO) 80 MG/1 ML VIAL IM ONE (12:16)
--- NOTE | 2019-08-06 12:41 | OP ---
DATE OF OPERATION: 08/06/2019 PREOPERATIVE DIAGNOSIS: L4, 5 spondylolisthesis, stenosis, and L5, S1 degenerative disk disease with left L5 radiculopathy. POSTOPERATIVE DIAGNOSIS: L4, 5 spondylolisthesis, stenosis, and L5, S1 degenerative disk disease with left L5 radiculopathy. ATTENDING SURGEON: Amado Diamond MD PROCEDURES: 1. Left L4, 5 injection. 2. Intraoperative fluoroscopy. ANESTHESIA: Local with sedation. COMPLICATIONS: None. HISTORY: Patient is a 64-year-old female with intractable back pain and left lower extremity radiculopathy. EMG demonstrated left L5 radiculopathy. MRI demonstrated L4, 5 disk bulge and L5, S1 degenerative disk disease. Because of intractable symptoms and failure of conservative treatment, she is here for her epidural steroid injection. Risks of procedure include, but are not limited to, bleeding, infection, spinal headache, and neurological injury. The patient understands the indication for the procedure. Risks, benefits, and alternatives for the treatment of her condition and wished to proceed. No guarantees were given for a favorable outcome. PROCEDURE IN DETAIL: After patient was taken to the operating room, she was placed in a prone position with a pillow under her hips. Lumbar area was cleaned with alcohol and painted with Betadine. Skin wheal raised with 5 mL 1% Xylocaine. A 20-degree spinal needle was inserted under AP and lateral fluoroscopic guidance from the left-sided approach to L4, 5 intralaminar space. Loss of resistance technique was utilized. There was no CSF or blood backflow. The needle bevel was turned laterally, 80 mg of Depo-Medrol, 1 mL 0.25% Marcaine was injected. The needle was withdrawn. Sterile bandage was applied. The patient tolerated the procedure well, was turned back to supine position. Moving bilateral lower extremities well. She did not complain of headache. AMADO DIAMOND M.D. [id number]
--- NOTE | 2019-08-06 12:46 | OP ---
Operative Note - Note: Operative Date: 08/06/19 Pre-Operative Diagnosis: L L5 radiculopathy Operation: L L4-5 EPSI, fluoroscopy Post-Operative Diagnosis: Same as Pre-op Anesthesia: Local Operative Report Dictated: Yes
[2019-08-06 12:56] VITALS: BP 131/62; TEMP 97.9
--- NOTE | 2019-08-06 15:14 | DS ---
Physical Examination Vital Signs: Vital Signs Temperature 97.9 F 08/06/19 12:54 Pulse Rate 62 08/06/19 12:54 Respiratory Rate 18 08/06/19 12:54 Blood Pressure 131/62 08/06/19 12:54 O2 Sat by Pulse Oximetry (%) 99 08/05/19 08:42 Findings/Remarks: Active Medications Generic Name Dose Route Start Last Admin Trade Name Freq PRN Reason Stop Dose Admin Heparin Sodium (Porcine) 5,000 unit 08/04/19 22:00 08/06/19 10:47 Heparin - SQ Not Given BID [facility] Dextrose/Sodium Chloride 1,000 mls @ 100 mls/hr 08/06/19 10:45 08/06/19 10:47 D5-Ns - IV 100 mls/hr ASDIR [facility] Administration Levothyroxine Sodium 100 mcg 08/04/19 07:00 08/06/19 06:38 Synthroid - PO 100 mcg DAILY@0700 [facility] Administration Tramadol HCl 50 mg 08/03/19 14:42 08/06/19 07:02 Ultram - PO 50 mg Q8H PRN Administration PAIN LEVEL 4 - 6 Labs: CBC, BMP 08/05/19 07:17 08/05/19 07:17 Discharge Summary Problems reviewed: Yes Reason For Visit: BACK PAIN,SUBCAPITAL FRACTURE OF LEFT FEMUR Current Active Problems Hypothyroid (Acute) Left groin pain (Acute) Lumbago with sciatica, left side (Acute) Hospital Course: The patient is a 64 year old female who presents to the emergency department for evaluation of left groin pain since January. She states around the time of onset of pain she was participating in workout classes 6 months ago. She notes she has had xrays of the left hip and an MRI of the lumbar spine which demonstrated bulging discs and pinched nerves. The patient reports her left hip pain affects her activities of daily living. she is not able to dress herself and cannot abduct the thigh bc of the pain she has seen pain specialist had MRI for back pain and got 3 facet injections in the back,but it didnot relieve the pain Patient was evaluated by Neurosurgery and received epidural injection without adverse effects. Condition: Stable - Instructions Diet, Activity, Other Instructions: follow up with PMD in 1 week follow up with Dr Amado Garcia from Neurosurgery return to ER if develop severe pain, respiratory distress, chest pain continue with medication as prescribed Referrals: Marco Schroeder MD [Primary Care Provider] - Amado Garcia MD [Staff Physician] - Disposition: HOME - Home Medications Comprehensive Discharge Medication List: Ambulatory Orders Levothyroxine [Synthroid -] 100 mcg PO DAILY 10/29/13 Ascorbic Acid [Vitamin C] 500 mg PO DAILY 08/03/19 Levothyroxine [Synthroid -] 100 mcg PO DAILY@0700 tablet 08/06/19
== END 2019-08-06 16:50 | disposition home or self-care (01) | DRG 552 ==
LOC: JER 09:41 → JERBED 12:10 → J8W 17:48
PROVIDERS: ADMIT Family Medicine; ATTEND Family Medicine
PROC: 3E0S3BZ Introduction of Anesthetic Agent into Epidural Space, Percutaneous Approach (ICD-10-PCS; 2019-08-06)
PROC: 3E0S33Z Introduction of Anti-inflammatory into Epidural Space, Percutaneous Approach (ICD-10-PCS; principal; 2019-08-06 12:00)
DX: M47.26 Other spondylosis with radiculopathy, lumbar region (principal); M48.061 Spinal stenosis, lumbar region without neurogenic claudication; M81.0 Age-related osteoporosis without current pathological fracture; E03.9 Hypothyroidism, unspecified; N83.291 Other ovarian cyst, right side; M16.12 Unilateral primary osteoarthritis, left hip; M43.16 Spondylolisthesis, lumbar region; G58.8 Other specified mononeuropathies; R10.32 Left lower quadrant pain; R26.9 Unspecified abnormalities of gait and mobility; E66.3 Overweight; Z68.28 Body mass index [BMI] 28.0-28.9, adult; M54.42 Lumbago with sciatica, left side; M54.9 Dorsalgia, unspecified
CPT/HCPCS: 36415; 72100-TC-FY; 72148-TC; 72192-TC; 73523-TC-FY; 73721-LT-TC; 76000-TC-FY; 80053; 83735; 84100; 84443; 85025; 85027; 85610; 85730; 86850; 86900; 86901; 93005; 93010; 95860-TC; 99283-25; J1100; J1644